=== PATIENT | male | born 1965 | race Caucasian/White ===

== ENCOUNTER 2021-02-21 08:31 | Emergency (ER) | payer OTHER, SELFPAY ==
--- NOTE | ~2021-02-21 | XR_ITS ---
EXAMINATION: XR hand LT min 3V DATE: 02/21/2021 08:54 INDICATION: Left hand foreign body. TECHNIQUE: 3 views of left hand were obtained. COMPARISON: None. FINDINGS: Bone alignment is normal. No fracture. There is mild osteoarthritis of triscaphe joint and first carpometacarpal joint and some of the interphalangeal joints. IMPRESSION: 1. No radiopaque foreign body. 2. Mild polyarticular osteoarthritis. Reviewed, dictated and finalized at location A.
[2021-02-21 08:43] VITALS: BP 191/92; PULSE 65; RESP 18; TEMP 36.2; O2SAT 100
--- NOTE | 2021-02-21 09:03 | ED.GENADULT ---
HPI - General Adult General Chief complaint: Wound/Laceration Stated complaint: L Hand Injury Time Seen by Provider: 02/21/21 08:59 History of Present Illness HPI narrative: Patient is a 55-year-old male otherwise healthy who comes to the emergency room today with a laceration to his left ring and pinky finger that happened at work just prior to arrival. 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 The areas fairly painful. He is moving his hand well. Admits to tingling. He is not on any blood thinners or any other medicines. Tetanus is not up-to-date. Related Data Allergies Allergy/AdvReac Type Severity Reaction Status Date / Time No Known Allergies Allergy Verified 02/21/21 08:55 Review of Systems Constitutional: Constitutional: Reports as per HPI, Denies fever(s), Denies night sweats and Denies weakness Cardiovascular: Cardiovascular: Denies chest pain, Denies edema, Denies leg edema, Denies dyspnea and Denies orthopnea Respiratory: Respiratory: Denies cough and Denies dyspnea Gastrointestinal: Gastrointestinal: Denies abdominal pain, Denies constipation, Denies diarrhea, Denies nausea and Denies vomiting Musculoskeletal: Musculoskeletal: Denies abnormal gait, Denies back pain, Denies numbness and Denies tingling Integumentary/Breasts: Comments: See HPI for laceration Neurologic: Denies Abnormal speech present, Denies abnormal gait, Denies numbness, Denies tingling and Denies weakness Psychiatric: Psychiatric: Denies homicidal ideation and Denies suicidal ideation [facility] [place] Social History Social History Gender identity (if verbalized by the patient): Male Exam Const: General: cooperative, healthy appearing, comfortable, no acute distress, well developed, alert, awake and Physically active Orientation/consciousness: patient oriented x3 Other: Pleasant. Well-appearing. HENMT: Head: normal to inspection, normocephalic and atraumatic Ears: external ears normal General nose exam: Normal external nose present Eyes: Pupils: Equal, round and reactive pupils present EOM: EOMs intact bilaterally Neck: Neck: normal visual inspection Chest: Chest palpation & inspection: normal inspection of the chest and no tenderness Resp: Effort & Inspection: normal respiratory effort and able to speak in complete sentences Auscultation: clear to auscultation bilaterally Cardio: Rate: regular rate Rhythm: regular rhythm GI: Inspection: normal to inspection GI Palp: No abdominal tenderness : General: Yes no CVA tenderness Back/Spine/Pelvis: Back: no CVA tenderness Skin: General skin exam: normal color and no rashes or lesions noted Lesions: no lesions Neuro: General: patient oriented x3, no focal motor deficits and CN's II-XI intact bilaterally Cranial nerves: Yes Equal, round and reactive pupils present Speech: No Abnormal speech present Extrem: General: normal to inspection and full ROM Other: He has 2 lacerations. One on the palmar aspect of the left ring finger which is distal to the MCP joint, it is a Diagonal laceration that is approximately 3 cm in length, I am able to visualize the tendon and I do not see any obvious injury. The second laceration is at the palmar aspect of left pinky finger diagonal laceration approximately 2 cm in length. This laceration is fairly deep as well but I do not see the tendon. No foreign bodies or contamination. He has full range of motion of all of his fingers in his left hand. He has good cap refill throughout. Sensory is intact and even throughout. Psych: Appearance: grossly normal and well kempt Mental Status: mental status grossly normal Speech and movement: Normal speech and movement present Affect: normal affect Thought process: Normal thought process present Course Consultations Consultation #1: Case discussed with plastic surgeon Dr. Gonzáles -we have agreed on plan for closure in the emergency room and follow-
[2021-02-21 11:02] VITALS: BP 167/88; PULSE 60
[2021-02-21] MEDS: TETANUS,DIPHTHERIA,AC PERTUSSIS ADULT (0.5 ML) BOOSTRIX IM (11:40)
== END 2021-02-21 11:53 | disposition home or self-care (01) ==
PROVIDERS: Emergency Provider Emergency Medicine
DX: S61.215A Laceration without foreign body of left ring finger without damage to nail, initial encounter (principal); S61.217A Laceration without foreign body of left little finger without damage to nail, initial encounter; W26.8XXA Contact with other sharp object(s), not elsewhere classified, initial encounter; Z23 Encounter for immunization
CPT/HCPCS: 12002; 73130; 90471; 90715; 99283